=== PATIENT | male | born 1945 | race Caucasian/White ===

== ENCOUNTER 2016-03-27 14:30 | Emergency (ER) | payer MEDICARE, OTHER ==
[2016-03-27 14:37] VITALS: TEMP 97.7
[2016-03-27] MEDS ORDERED: SODIUM CHLORIDE 0.9% 500 ML IV STA (15:02)
[2016-03-27] MEDS ORDERED: SODIUM CHLORIDE 0.9% 1,000 ML IV STA (15:02)
[2016-03-27 15:30] LABS: Basophils # (A) 0.1 k/uL (0-0.2); Basophils % (A) 1 %; CH 31.3; CHCM 35.4; Eosinophils # (A) 0.2 k/uL (0-0.7); Eosinophils % (A) 2 %; HCT 45.6 % (39.0-53.0); HDW 2.71; HGB 15.6 gm/dL (13.0-17.5); Luc # (Auto) 0.15; Luc % (Auto) 1; Lymphocytes # (A) 1.2 k/uL (1.0-4.8); Lymphocytes % (A) 11 %; MCH 30.2 pg (25.0-35.0); MCHC 34.1 g/dL (31.0-37.0); MCV 88.7 fL (80.0-100.0); Mean Platelet Volume 9.4; Monocytes # (A) 0.5 k/uL (0-1.0); Monocytes % (A) 5 %; Neutrophils % (A) 81 %; RBC 5.14 m/uL (4.30-5.90); RDW 12.6 % (11.5-15.5); WBC 11.1 k/uL (3.8-10.6); WBC (Perox) 11.48
--- NOTE | 2016-03-27 15:37 | XR ---
EXAMINATION TYPE: XR chest 2V DATE OF EXAM: 03/27/2016 3:29 PM COMPARISON: None HISTORY: 71-year-old male with dysrhythmia TECHNIQUE: PA and lateral views FINDINGS: The cardiomediastinal silhouette, aorta, and pulmonary vasculature are within normal limits. Mild dif fuse interstitial prominence has a chronic appearance. Otherwise, lungs and pleural spaces are clear. Partially visualized shoulder arthroplasties. IMPRESSION: Chronic-appearing changes without acute cardiopulmonary process.
[2016-03-27 15:44] LABS: ALT 37 U/L (21-72); AST 27 U/L (17-59); Alkaline Phosphatase 66 U/L (38-126); Anion Gap 16 mmol/L; Blood Urea Nitrogen 24 mg/dL (9-20); Calcium 10.1 mg/dL (8.4-10.2); Carbon Dioxide 24 mmol/L (22-30); Chloride 100 mmol/L (98-107); Glucose 152 mg/dL (74-99); Magnesium 1.8 mg/dL (1.6-2.3); Non-African American GFR(MDRD) >60 (>60 ml/min/1.73 sqM); Potassium 4.3 mmol/L (3.5-5.1); Sodium 140 mmol/L (137-145); Total Bilirubin 0.5 mg/dL (0.2-1.3); Total Protein 7.7 g/dL (6.3-8.2)
[2016-03-27 15:47] LABS: INR 1.2 (<1.1); Partial Thromboplastin Time 27.8 sec (22.0-30.0); Prothrombin Time 11.7 sec (9.0-12.0)
[2016-03-27 15:53] LABS: Creatine Kinase 45 U/L (55-170)
--- NOTE | 2016-03-27 16:03 | CT ---
EXAMINATION TYPE: CT brain wo con DATE OF EXAM: 03/27/2016 3:45 PM COMPARISON: NONE HISTORY: 71-year-old male with weakness TECHNIQUE: Examination was done in axial plane without intravenous contrast. Coronal and sagittal reconstructio ns performed. CT DLP: 1090.4 mGycm Automated exposure control for dose reduction was used. FINDINGS: There is no evidence of acute intracranial hemorrhage, acute ischemic changes, mass, mass-effect, or extra-axial fluid collection. There is no effacement of cerebral sulci or basal subarachnoid cister ns. There is no hydrocephalus. There is no midline shift. Cline-white matter distinction is preserv ed. There is mild age-related cerebral atrophy. Paranasal sinuses and mastoid air cells are well pneumatized. Orbits and globes are intact. IMPRESSION: No acute intracranial abnormality seen. Mild age-related atrophy.
[2016-03-27 16:05] LABS: Creatine Kinase MB 0.5 ng/mL (0.0-2.4); Troponin I <0.012 ng/mL (0.000-0.034)
--- NOTE | 2016-03-27 17:25 | ED ---
Arrhythmia/Palpitations HPI - General Chief Complaint: Arrhythmia/Palpitations Stated Complaint: Arrythmia/Palpitations Time Seen by Provider: 03/27/16 14:54 Source: patient Mode of arrival: wheelchair Limitations: no limitations - History of Present Illness Initial Comments: Presented with the palpitation he feels his heart disease reactive to Januvia and metformin he has loss of appetite he has lost 11 pounds and lost many half weeks is also complaining about the dizzy and palpitation he said his heart rate was as high as 152 this morning he denies any shortness of breath he does complain about some shakiness when his heart rate gets too fast no chest pain no pleuritic chest pain no abdominal pain no frequency urgency dysuria, tender system is unremarkable otherwise - Related Data Home Medications Medication Instructions Recorded Confirmed Lisinopril-Hctz 20-12.5 mg 1 tab PO DAILY 03/27/16 03/27/16 [Zestoretic 20-12.5] Simvastatin [Zocor] 40 mg PO HS 03/27/16 03/27/16 metFORMIN HCL 1,000 mg PO BID 03/27/16 03/27/16 sitaGLIPtin [Januvia] 100 mg PO DAILY@1700 03/27/16 03/27/16 Previous Rx's Medication Instructions Recorded Metoprolol Tartrate 25 mg PO BID #60 tab 03/27/16 Allergies Allergy/AdvReac Type Severity Reaction Status Date / Time dulaglutide [From [facility]] AdvReac Nausea & Verified 03/27/16 14:57 Vomiting Review of Systems ROS Statement: Those systems with pertinent positive or pertinent negative responses have been documented in the HPI. ROS Other: All systems not noted in ROS Statement are negative. Past Medical History Past Medical History: Diabetes Mellitus, Hyperlipidemia, Hypertension History of Any Multi-Drug Resistant Organisms: None Reported Past Surgical History: Joint Replacement, Orthopedic Surgery Additional Past Surgical History / Comment(s): shoulder x2 knee Past Psychological History: No Psychological Hx Reported Smoking Status: Former smoker Past Alcohol Use History: None Reported Past Drug Use History: None Reported General Exam - General Exam Comments Initial Comments: General: The patient is awake and alert, in no distress, and does not appear acutely ill. Skin: Skin is warm and dry and no rashes or lesions are noted. Eye: Pupils are equal, round and reactive to light, extra-ocular movements are intact; there is normal conjunctiva bilaterally. Ears, nose, mouth and throat: There are moist mucous membranes and no oral lesions. Neck: The neck is supple, there is no tenderness or JVD. Cardiovascular: There is a regular rate and rhythm. No murmur, rub or gallop is appreciated. He was sinus tach round 110 at the time of exam Respiratory: To auscultation bilateral, no wheezing no rhonchi no distress respiratory wilson noticed Gastrointestinal: Soft, non-distended, non-tender abdomen without masses or organomegaly noted. There is no rebound or guarding present. Bowel sounds are unremarkable. Back: There is no tenderness to palpation in the midline. There is no obvious deformity. Musculoskeletal: Normal ROM, no tenderness, There is no pedal edema. There is no calf tenderness or swelling. No cords were appreciated. Neurological: CN II-XII intact, Cranial nerves III through XII are intact. There are no obvious motor or sensory deficits. Coordination appears grossly intact. Speech is normal. Psychiatric: Cooperative, appropriate mood & affect, normal judgment. Limitations: no limitations Course Vital Signs 03/27/16 03/27/16 03/27/16 14:33 15:30 16:05 Temperature 97.7 F Pulse Rate 124 H 96 Pulse Rate [ 96 Sales Professional ] Respiratory 18 15 Rate Blood Pressure 140/77 133/82 O2 Sat by Pulse 98 97 Oximetry 03/27/16 17:59 Temperature Pulse Rate 90 Pulse Rate [ Sales Professional ] Respiratory 15 Rate Blood Pressure 137/92 O2 Sat by Pulse 97 Oximetry Discussed with the Dr. Rutledge he agrees that patient to go home on a small dose of metoprolol 25 mg by mouth twice a day then stop the Januvia, these instructions were given to patient he is agreeable and is comfortable going home EKG Findings - EKG Comments: EKG Findings:: EKG is a sinus tachycardia ventricular rate is 7017 LA interval is 188 QRS duration is 90 QT/QTc is 322/449 review of this EKG did not reveal any ST elevation or ST depression Medical Decision Making - Lab Data Result diagrams: 03/27/16 15:10 03/27/16 15:10 Lab Results 03/27/16 03/27/16 03/27/16 Range/Units 15:10 15:10 15:10 WBC 11.1 H (3.8-10.6) k/uL RBC 5.14 (4.30-5.90) m/uL Hgb 15.6 (13.0-17.5) gm/dL Hct 45.6 (39.0-53.0) % MCV 88.7 (80.0-100.0) fL MCH 30.2 (25.0-35.0) pg MCHC 34.1 (31.0-37.0) g/dL RDW 12.6 (11.5-15.5) % Plt Count 209 (150-450) k/uL Neutrophils % 81 % Lymphocytes % 11 % Monocytes % 5 % Eosinophils % 2 % Basophils % 1 % Neutrophils # 9.0 H (1.3-7.7) k/uL Lymphocytes # 1.2 (1.0-4.8) k/uL Monocytes # 0.5 (0-1.0) k/uL Eosinophils # 0.2 (0-0.7) k/uL Basophils # 0.1 (0-0.2) k/uL PT (9.0-12.0) sec INR (<1.1) APTT (22.0-30.0) sec Sodium 140 (137-145) mmol/L Potassium 4.3 (3.5-5.1) mmol/L Chloride 100 (98-107) mmol/L Carbon Dioxide 24 (22-30) mmol/L Anion Gap 16 mmol/L BUN 24 H (9-20) mg/dL Creatinine 1.10 (0.66-1.25) mg/dL Est GFR (MDRD) Af Amer >60 (>60 ml/min/1.73 sqM) Est GFR (MDRD) Non-Af >60 (>60 ml/min/1.73 sqM) Glucose 152 H (74-99) mg/dL Calcium 10.1 (8.4-10.2) mg/dL Magnesium 1.8 (1.6-2.3) mg/dL Total Bilirubin 0.5 (0.2-1.3) mg/dL AST 27 (17-59) U/L ALT 37 (21-72) U/L Alkaline Phosphatase 66 (38-126) U/L Total Creatine Kinase 45 L (55-170) U/L CK-MB (CK-2) 0.5 (0.0-2.4) ng/mL CK-MB (CK-2) Rel Index 1.1 Troponin I <0.012 (0.000-0.034) ng/mL Total Protein 7.7 (6.3-8.2) g/dL Albumin 4.7 (3.5-5.0) g/dL TSH 2.240 (0.465-4.680) mIU/L 03/27/16 Range/Units 15:10 WBC (3.8-10.6) k/uL RBC (4.30-5.90) m/uL Hgb (13.0-17.5) gm/dL Hct (39.0-53.0) % MCV (80.0-100.0) fL MCH (25.0-35.0) pg MCHC (31.0-37.0) g/dL RDW (11.5-15.5) % Plt Count (150-450) k/uL Neutrophils % % Lymphocytes % % Monocytes % % Eosinophils % % Basophils % % Neutrophils # (1.3-7.7) k/uL Lymphocytes # (1.0-4.8) k/uL Monocytes # (0-1.0) k/uL Eosinophils # (0-0.7) k/uL Basophils # (0-0.2) k/uL PT 11.7 (9.0-12.0) sec INR 1.2 (<1.1) APTT 27.8 (22.0-30.0) sec Sodium (137-145) mmol/L Potassium (3.5-5.1) mmol/L Chloride (98-107) mmol/L Carbon Dioxide (22-30) mmol/L Anion Gap mmol/L BUN (9-20) mg/dL Creatinine (0.66-1.25) mg/dL Est GFR (MDRD) Af Amer (>60 ml/min/1.73 sqM) Est GFR (MDRD) Non-Af (>60 ml/min/1.73 sqM) Glucose (74-99) mg/dL Calcium (8.4-10.2) mg/dL Magnesium (1.6-2.3) mg/dL Total Bilirubin (0.2-1.3) mg/dL AST (17-59) U/L ALT (21-72) U/L Alkaline Phosphatase (38-126) U/L Total Creatine Kinase (55-170) U/L CK-MB (CK-2) (0.0-2.4) ng/mL CK-MB (CK-2) Rel Index Troponin I (0.000-0.034) ng/mL Total Protein (6.3-8.2) g/dL Albumin (3.5-5.0) g/dL TSH (0.465-4.680) mIU/L Critical Care Time Total Critical Care Time: 35 Critical Care Time: Patient came in was quite anxious me his heart rate was running when 24 is sinus at this point we monitored him and since he says is sinus tach he was afebrile we gave him 500 mg bolus and started on a fluids CBC troponin EKG INR TSH compressive metabolic panel was done those were reviewed and they're all within normal range considering his dizziness may be secondary to his tachycardia any new bowel etiology was ruled out with a head CT at 1700 and his heart rate is below 190 he is feeling better he is looking better but on her doctor Dr. Lamberto Rutledge considering his dizziness and heart rate is high as 152 with a we need to observe him overnight or he could benefit from Holter monitor as outpatient 4600 H of calcium channel alice or beta alice Disposition Clinical Impression: Tachycardia, Dizziness Disposition: HOME SELF-CARE Condition: Good Instructions: Palpitations (ED) Prescriptions: Metoprolol Tartrate 25 mg PO BID #60 tab Referrals: Weston Rutledge MD [Primary Care Provider] - 1-2 days
[2016-03-27] MEDS ORDERED: METOPROLOL TARTRATE 25 MG TAB PO STA (17:46)
[2016-03-27 18:55] VITALS: BP 116/72; PULSE 75; RESP 16
== END 2016-03-27 19:02 | disposition home or self-care (01) ==
LOC: EC 14:30
DX: R00.0 Tachycardia, unspecified (principal); R42 Dizziness and giddiness; Z79.899 Other long term (current) drug therapy; Z88.8 Allergy status to other drugs, medicaments and biological substances; E11.9 Type 2 diabetes mellitus without complications; E78.5 Hyperlipidemia, unspecified; I10 Essential (primary) hypertension; Z79.84 Long term (current) use of oral hypoglycemic drugs; Z87.891 Personal history of nicotine dependence
CPT/HCPCS: 36415; 70450; 71020; 80053; 82550; 82553; 83735; 84443; 84484; 85025; 85610; 85730; 93005; 99285

== ENCOUNTER → 2016-09-19 | Outpatient (CLI) | payer MEDICARE, OTHER ==
--- NOTE | 2016-09-19 15:03 | XR ---
Abdomen HISTORY: Kidney stone, hematuria Frontal view of the abdomen submitted, no comparisons Overlying bowel gas may obscure detail. Degenerative disc changes in the visualized spine. No pneumop eritoneum or bowel obstruction. Vascular calcifications are present within the pelvis. Lung bases are not included on the exam. IMPRESSION: No abnormality evident to account for patient's symptoms.
== END ==
LOC: RADXRMAIN 14:25
PROVIDERS: ATTEND Urology
DX: N20.0 Calculus of kidney (principal)
CPT/HCPCS: 74000

== ENCOUNTER → 2016-10-15 | Outpatient (CLI) | payer MEDICARE, OTHER ==
[2016-10-15 13:54] LABS: Blood Urea Nitrogen 27 mg/dL (9-20); Non-African American GFR(MDRD) >60 (>60 ml/min/1.73 sqM)
--- NOTE | 2016-10-15 15:12 | CT ---
EXAMINATION TYPE: CT urogram wo/w con DATE OF EXAM: 10/15/2016 COMPARISON: NONE HISTORY: Gross hematuria CT DLP: 2066 mGycm, Automated Exposure Control for Dose Reduction was Utilized. CONTRAST: CT scan of the abdomen and pelvis is performed with oral and without and with IV Contrast, patient in jected with 100 ml mL of Omnipaque 300. FINDINGS: Visualized portions of the lungs are clear. There is no pleural or pericardial fluid. The h eart is not Both adrenal glands are normal. There is no evidence of hydronephrosis or nephrolithiasis. Both kidneys demonstrate function and appear morphologically normal. Limited views of the pancreas are normal. There is moderate atheromatous calcification of the aorta and other iliac vessels. There is no significant retroperitoneal, iliac or inguinal adenopathy. There are 2 filling defects within the bladder. One measures 3 cm the other measures 1.8 cm. The firs t is near the trigone on the left. The other is located centrally and posteriorly. The right ureter is incompletely visualized. Left ureter is normal. There is diverticular change involving the left side of the colon. I do not see radiographic evidence of diverticulitis. Small bowel loops are normal. There is no free fluid and no free air. There is a umbilical hernia containing fat only with a mouth measuring 1.4 cm. There is degenerative disc disease and hypertrophic spondylosis within the spine. There is facet arth ropathy. No bony destructive lesion is seen. IMPRESSION: 1. NORMAL-APPEARING KIDNEYS. 2. 2 SOFT TISSUE FILLING DEFECTS WITHIN THE BLADDER. THESE ARE SUSPICIOUS FOR TRANSITIONAL CELL CARCI NOMA. DIRECT VISUALIZATION WOULD BE SUGGESTED. 3. UNCOMPLICATED DIVERTICULOSIS OF THE LEFT SIDE OF THE COLON. 4. UMBILICAL HERNIA CONTAINING FAT ONLY WITH A MOUTH MEASURING 1.4 CM. 5. DEGENERATIVE CHANGES WITHIN THE SPINE.
== END | disposition home or self-care (01) ==
LOC: RADCTMAIN 13:06
PROVIDERS: ATTEND Urology
DX: K57.30 Diverticulosis of large intestine without perforation or abscess without bleeding (principal); K42.9 Umbilical hernia without obstruction or gangrene; N32.89 Other specified disorders of bladder
CPT/HCPCS: 82565; 84520; 74178; 36415; 74400; Q9967

== ENCOUNTER 2016-11-18 03:11 | Emergency (ER) | payer MEDICARE, OTHER ==
[2016-11-18 03:16] VITALS: TEMP 97
[2016-11-18] MEDS ORDERED: MORPHINE SULFATE 4 MG/ML SYRINGE IV STA (03:47)
[2016-11-18] MEDS ORDERED: SODIUM CHLORIDE 0.9% 500 ML IV STA (03:47)
--- NOTE | 2016-11-18 03:51 | ED ---
Male Urogenital HPI - General Chief complaint: Urogenital Stated complaint: blood in urine Time Seen by Provider: 11/18/16 03:32 Source: patient Mode of arrival: wheelchair Limitations: no limitations - History of Present Illness Initial comments: This patient is a 71-year-old man who presents to be evaluated for hematuria and suprapubic pressure. The patient states that he started passing blood and clots in the urine yesterday and that the symptoms worsened tonight. 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, by Dr. Meneses. Patient had been feeling fairly well until yesterday morning. The patient denies fever or chills. No chest pain, dyspnea, palpitations, lightheadedness or syncope. He denies abdominal pain on suprapubic pressure. No change in bowel movements. MD Complaint: other (Hematuria) Onset/Timin -: days(s) Location: abdomen Radiation: none Severity: moderate Quality: other (Pressure) Consistency: constant Improves with: none Worsens with: urination Reports: blood in urine - Related Data Home Medications Medication Instructions Recorded Confirmed Lisinopril-Hctz 20-12.5 mg 1 tab PO DAILY 03/27/16 03/27/16 [Zestoretic 20-12.5] Simvastatin [Zocor] 40 mg PO HS 03/27/16 03/27/16 metFORMIN HCL 1,000 mg PO BID 03/27/16 03/27/16 sitaGLIPtin [Januvia] 100 mg PO DAILY@1700 03/27/16 03/27/16 Previous Rx's Medication Instructions Recorded Metoprolol Tartrate 25 mg PO BID #60 tab 03/27/16 Allergies Allergy/AdvReac Type Severity Reaction Status Date / Time dulaglutide [From [facility]] AdvReac Nausea & Verified 11/18/16 03:16 Vomiting Review of Systems ROS Statement: Those systems with pertinent positive or pertinent negative responses have been documented in the HPI. ROS Other: All systems not noted in ROS Statement are negative. Constitutional: Denies: fever, chills Respiratory: Denies: cough, dyspnea Cardiovascular: Denies: chest pain, palpitations, edema, syncope Gastrointestinal: Reports: as per HPI, abdominal pain. Denies: nausea, vomiting , diarrhea, constipation Genitourinary: Reports: urgency, hematuria Musculoskeletal: Denies: back pain Skin: Denies: rash Neurological: Denies: headache, weakness Hematological/Lymphatic: Denies: easy bleeding Past Medical History Past Medical History: Diabetes Mellitus, Hyperlipidemia, Hypertension History of Any Multi-Drug Resistant Organisms: None Reported Past Surgical History: Joint Replacement, Orthopedic Surgery Additional Past Surgical History / Comment(s): shoulder x2 knee. tumor removed from bladder. Past Psychological History: No Psychological Hx Reported Smoking Status: Former smoker Past Alcohol Use History: None Reported Past Drug Use History: None Reported General Exam Limitations: no limitations General appearance: alert, anxious Head exam: Present: atraumatic, normocephalic Eye exam: Present: normal appearance. Absent: scleral icterus, conjunctival injection ENT exam: Present: normal oropharynx Neck exam: Present: normal inspection Respiratory exam: Present: normal lung sounds bilaterally. Absent: respiratory distress, wheezes, rales, rhonchi, stridor Cardiovascular Exam: Present: regular rate, normal rhythm, normal heart sounds. Absent: systolic murmur, diastolic murmur, rubs, gallop GI/Abdominal exam: Present: soft. Absent: distended, tenderness, guarding, rebound, mass Extremities exam: Present: normal inspection, normal capillary refill. Absent: pedal edema, calf tenderness Back exam: Present: normal inspection. Absent: CVA tenderness (R), CVA tenderness (L) Neurological exam: Present: alert Skin exam: Present: warm, dry, intact, normal color. Absent: rash Course Vital Signs 11/18/16 03:14 Temperature 97 F L Pulse Rate 119 H Respiratory 24 Rate Blood Pressure 170/88 O2 Sat by Pulse 100 Oximetry Medical Decision Making - Lab Data Result diagrams: 11/18/16 03:40 11/18/16 03:40 Lab Results 11/18/16 11/18/16 11/18/16 Range/Units 03:40 03:40 03:40 WBC 20.7 H (3.8-10.6) k/uL RBC 4.44 (4.30-5.90) m/uL Hgb 13.4 (13.0-17.5) gm/dL Hct 41.0 (39.0-53.0) % MCV 92.2 (80.0-100.0) fL MCH 30.1 (25.0-35.0) pg MCHC 32.7 (31.0-37.0) g/dL RDW 13.9 (11.5-15.5) % Plt Count 250 (150-450) k/uL Neutrophils % 92 % Lymphocytes % 4 % Monocytes % 3 % Eosinophils % 0 % Basophils % 0 % Neutrophils # 19.1 H (1.3-7.7) k/uL Lymphocytes # 0.9 L (1.0-4.8) k/uL Monocytes # 0.5 (0-1.0) k/uL Eosinophils # 0.1 (0-0.7) k/uL Basophils # 0.1 (0-0.2) k/uL PT (9.0-12.0) sec INR (<1.2) APTT (22.0-30.0) sec Sodium 138 (137-145) mmol/L Potassium 3.9 (3.5-5.1) mmol/L Chloride 102 (98-107) mmol/L Carbon Dioxide 19 L (22-30) mmol/L Anion Gap 17 mmol/L BUN 27 H (9-20) mg/dL Creatinine 0.82 (0.66-1.25) mg/dL Est GFR (MDRD) Af Amer >60 (>60 ml/min/1.73 sqM) Est GFR (MDRD) Non-Af >60 (>60 ml/min/1.73 sqM) Glucose 242 H (74-99) mg/dL Calcium 10.0 (8.4-10.2) mg/dL Total Bilirubin 0.6 (0.2-1.3) mg/dL AST 22 (17-59) U/L ALT 19 L (21-72) U/L Alkaline Phosphatase 53 (38-126) U/L Total Protein 7.2 (6.3-8.2) g/dL Albumin 4.5 (3.5-5.0) g/dL Urine Color Red Urine Appearance Cloudy (Clear) Urine pH (5.0-8.0) Ur Specific [place] (1.001-1.035) Urine Protein (Negative) Urine Glucose (UA) (Negative) Urine Ketones (Negative) Urine Blood (Negative) Urine Nitrite (Negative) Urine Bilirubin (Negative) Urine Urobilinogen (<2.0) mg/dL Ur Leukocyte Esterase (Negative) 11/18/16 Range/Units 03:40 WBC (3.8-10.6) k/uL RBC (4.30-5.90) m/uL Hgb (13.0-17.5) gm/dL Hct (39.0-53.0) % MCV (80.0-100.0) fL MCH (25.0-35.0) pg MCHC (31.0-37.0) g/dL RDW (11.5-15.5) % Plt Count (150-450) k/uL Neutrophils % % Lymphocytes % % Monocytes % % Eosinophils % % Basophils % % Neutrophils # (1.3-7.7) k/uL Lymphocytes # (1.0-4.8) k/uL Monocytes # (0-1.0) k/uL Eosinophils # (0-0.7) k/uL Basophils # (0-0.2) k/uL PT 11.9 (9.0-12.0) sec INR 1.2 H (<1.2) APTT 23.9 (22.0-30.0) sec Sodium (137-145) mmol/L Potassium (3.5-5.1) mmol/L Chloride (98-107) mmol/L Carbon Dioxide (22-30) mmol/L Anion Gap mmol/L BUN (9-20) mg/dL Creatinine (0.66-1.25) mg/dL Est GFR (MDRD) Af Amer (>60 ml/min/1.73 sqM) Est GFR (MDRD) Non-Af (>60 ml/min/1.73 sqM) Glucose (74-99) mg/dL Calcium (8.4-10.2) mg/dL Total Bilirubin (0.2-1.3) mg/dL AST (17-59) U/L ALT (21-72) U/L Alkaline Phosphatase (38-126) U/L Total Protein (6.3-8.2) g/dL Albumin (3.5-5.0) g/dL Urine Color Urine Appearance (Clear) Urine pH (5.0-8.0) Ur Specific [place] (1.001-1.035) Urine Protein (Negative) Urine Glucose (UA) (Negative) Urine Ketones (Negative) Urine Blood (Negative) Urine Nitrite (Negative) Urine Bilirubin (Negative) Urine Urobilinogen (<2.0) mg/dL Ur Leukocyte Esterase (Negative) Disposition Clinical Impression: Hematuria Disposition: HOME SELF-CARE Condition: Good Instructions: Hematuria (ED) Referrals: Phyllis Vaz MD [Primary Care Provider] - 1-2 days Eduardo Meneses MD [STAFF PHYSICIAN] - 1-2 days
[2016-11-18 04:13] LABS: Basophils # (A) 0.1 k/uL (0-0.2); Basophils % (A) 0 %; CHCM 34.9; Eosinophils # (A) 0.1 k/uL (0-0.7); Eosinophils % (A) 0 %; HDW 2.67; HGB 13.4 gm/dL (13.0-17.5); Luc % (Auto) 1; Lymphocytes # (A) 0.9 k/uL (1.0-4.8); Lymphocytes % (A) 4 %; MCH 30.1 pg (25.0-35.0); MCHC 32.7 g/dL (31.0-37.0); MCV 92.2 fL (80.0-100.0); Mean Platelet Volume 10.3; Monocytes # (A) 0.5 k/uL (0-1.0); Monocytes % (A) 3 %; Neutrophils # (A) 19.1 k/uL (1.3-7.7); Neutrophils % (A) 92 %; RBC 4.44 m/uL (4.30-5.90); RDW 13.9 % (11.5-15.5); WBC 20.7 k/uL (3.8-10.6); WBC (Perox) 19.35
[2016-11-18 04:15] LABS: Appearance,Urine Cloudy (Clear)
[2016-11-18 04:18] LABS: UA Billing (MACRO vs. MICRO) MICRO
[2016-11-18 04:27] LABS: INR 1.2 (<1.2); Prothrombin Time 11.9 sec (9.0-12.0)
[2016-11-18 04:28] LABS: Partial Thromboplastin Time 23.9 sec (22.0-30.0)
[2016-11-18 04:31] LABS: ALT 19 U/L (21-72); AST 22 U/L (17-59); Alkaline Phosphatase 53 U/L (38-126); Anion Gap 17 mmol/L; Blood Urea Nitrogen 27 mg/dL (9-20); Carbon Dioxide 19 mmol/L (22-30); Chloride 102 mmol/L (98-107); Glucose 242 mg/dL (74-99); Non-African American GFR(MDRD) >60 (>60 ml/min/1.73 sqM); Potassium 3.9 mmol/L (3.5-5.1); Sodium 138 mmol/L (137-145); Total Bilirubin 0.6 mg/dL (0.2-1.3); Total Protein 7.2 g/dL (6.3-8.2)
[2016-11-18 05:19] VITALS: BP 126/70; PULSE 90; RESP 16
[2016-11-18] MEDS ORDERED: OXYBUTYNIN CHLORIDE 5 MG TAB PO STA (05:20)
[2016-11-18] MEDS ORDERED: DIAZEPAM 5 MG/ML 2 ML SYRINGE IVP STA (05:21)
== END 2016-11-18 05:49 | disposition home or self-care (01) ==
LOC: EC 03:11
DX: R31.9 Hematuria, unspecified (principal); Z98.890 Other specified postprocedural states; Z87.891 Personal history of nicotine dependence; Z79.84 Long term (current) use of oral hypoglycemic drugs; Z79.899 Other long term (current) drug therapy; Z88.8 Allergy status to other drugs, medicaments and biological substances
CPT/HCPCS: 51798; 36415; 80053; 85025; 85610; 85730; 81001; 99284; 96374; 96375; 96361; J2270; J3360

== ENCOUNTER → 2017-11-05 | Outpatient (CLI) | payer MEDICARE, OTHER ==
[2017-11-05 13:37] LABS: Blood Urea Nitrogen 29 mg/dL (9-20)
--- NOTE | 2017-11-05 14:35 | CT ---
EXAMINATION TYPE: CT brain wo/w con DATE OF EXAM: 11/05/2017 COMPARISON: 03/27/2016 HISTORY: [place] CT DLP: 2383mGycm CONTRAST: CT scan of the head is performed without and with IV Contrast, patient injected with 100 mL of Isovue 300. Unenhanced followed by contrast enhanced CT of the brain is submitted for evaluation. The ventricles are midline. There is no evidence for intracranial hemorrhage or extra-axial collection. No mass e ffects are identified. Visualized bony calvarium is intact. Contrast is administered and no enhanci ng lesions are detected. No pathologic enhancement is identified. If symptoms persist consider MRI. IMPRESSION: No acute intracranial process or enhancing lesion identified.
== END | disposition home or self-care (01) ==
LOC: RADCTMAIN 12:58
PROVIDERS: ATTEND Internal Medicine
DX: R51 Headache (principal)
CPT/HCPCS: 82565; 84520; 70470; 36415; Q9967

== ENCOUNTER → 2017-12-08 | Outpatient (CLI) | payer MEDICARE, OTHER ==
--- NOTE | 2017-12-08 13:14 | MR ---
EXAMINATION TYPE: MR cervical spine wo/w con DATE OF EXAM: 12/08/2017 COMPARISON: HISTORY: Cervicalgia TECHNIQUE: Multiplanar, multisequence images of the cervical spine were acquired utilizing 7 mL intravenous Gada vist gadolinium contrast. Diffusion weighted imaging was performed. C2-C3: Minimal central posterior disc bulge causes only slight anterior mass effect on the thecal sac . No significant central stenosis or foraminal encroachment. C3-C4: Posterior extension of broad-based disc bulge causes mild anterior mass effect on the thecal s ac, lateral extension of endplate disc complex results in some foraminal encroachment bilaterally. Fa cet arthropathy change noted. C4-C5: Posterior extension of endplate disc complex may contact the anterior cervical cord, lateral e xtension endplate disc complex causes bilateral foraminal encroachment. There is mild to moderate jeana tral canal stenosis. C5-C6: Posterior extension of endplate disc complex causes minimal anterior mass effect on the thecal sac. Circumferential extension of endplate disc complex results in some minimal foraminal encroachme nt. C6-C7: Posterior extension of endplate disc complex causes mild anterior mass effect on the thecal sa c. No significant central stenosis. Lateral extension of endplate disc complex causes bilateral hai inal encroachment right greater than left. C7-T1: Posterior extension endplate disc complex causes mild anterior mass effect on the thecal sac. No significant central stenosis or foraminal encroachment. Cervical segments are intact. Minimal anterolisthesis grade 1 C3-4. Cervical spinal cord is of normal signal. Craniovertebral junction relationships are within normal limits. Loss of disc height and si gnal present at the intervertebral levels C3-4, C4-5, C5-6 and C6-7, C7-T1 greater than C2-3 compatib le with disc desiccation and degenerative disc disease. No abnormal enhancement following contrast ad ministration. IMPRESSION: Multilevel degenerative disc disease, spinal stenosis, foraminal encroachment as described.
== END ==
LOC: RADMRIMAIN 11:39
PROVIDERS: ATTEND Internal Medicine
DX: M48.02 Spinal stenosis, cervical region (principal); M50.30 Other cervical disc degeneration, unspecified cervical region
CPT/HCPCS: 72156; A9581

== ENCOUNTER → 2017-12-22 | Outpatient (CLI) | payer MEDICARE, OTHER | END | disposition home or self-care (01) | LOC: LABWHC1 11:31 | PROVIDERS: ATTEND Urology | DX: C67.9 Malignant neoplasm of bladder, unspecified (principal); R97.20 Elevated prostate specific antigen [PSA] | CPT/HCPCS: 36415; 84153; 88108 ==

== ENCOUNTER → 2018-10-11 | Outpatient (CLI) | payer MEDICARE, OTHER ==
--- NOTE | 2018-10-12 07:56 | NM ---
EXAMINATION TYPE: NM hepatobiliary w EF DATE OF EXAM: 10/12/2018 COMPARISON: NONE HISTORY: Right upper quadrant pain TECHNIQUE: After the intravenous administration of 4.6 mCi Tc 99m Mebrofenin hepatobiliary scintigrap hy is performed. Immediate images post injection. FINDINGS: There is satisfactory initial accumulation of tracer by the liver. The gallbladder is visualized wit hin 6 minutes. The small bowel activity is noted within 18 minutes. At one hour 8 ounces of oral en sure plus is given to mimic CCK and gallbladder ejection fraction is calculated at 94 %, above the up per limit of normal range. Therefore there is no scintigraphic evidence of cystic or common bile jadiel t obstruction to suggest acute cholecystitis. IMPRESSION: Findings may be indicative of hyper dynamic gallbladder
== END | disposition home or self-care (01) ==
LOC: RADNMMAIN 12:45
PROVIDERS: ATTEND Internal Medicine
DX: Z53.9 Procedure and treatment not carried out, unspecified reason (principal)
CPT/HCPCS: 78226

== ENCOUNTER 2018-11-04 11:21 | Day surgery (SDC) | payer MEDICARE, OTHER ==
[2018-10-29 15:52] VITALS: BMI 24.2
[~2018-11-04 11:21] MED LIST: DEXAMETHASONE SOD PHOSPHATE 10 MG/ML 1 ML VIAL IV ONE; LACTATED RINGERS 1,000 ML IV SCH; ONDANSETRON 4 MG/2 ML VIAL IVP ONE
[2018-11-04 11:47] LABS: Glucose,Whole Blood 113 mg/dL (75-99)
[2018-11-04] MEDS ORDERED: HEPARIN SODIUM,PORCINE 5,000 UNIT/ML 1 ML VIAL SQ ONE (11:49)
[2018-11-04] MEDS ORDERED: ROCURONIUM BROMIDE 10 MG/ML 10 ML VIAL IV ONE (12:15)
[2018-11-04] MEDS ORDERED: fentaNYL (PF) 50 MCG/ML 2 ML AMP ONE (12:15)
[2018-11-04] MEDS ORDERED: PROPOFOL 10 MG/ML 20 ML VIAL IV ONE (12:15)
[2018-11-04] MEDS ORDERED: GLYCOPYRROLATE 0.2 MG/ML 2 ML VIAL ONE (12:15)
[2018-11-04] MEDS ORDERED: LIDOCAINE 1% INJ 10MG/ML (20 ML MDV) ONE (12:15)
[2018-11-04] MEDS ORDERED: ePHEDrine SULFATE/0.9% NACL/PF 50 MG/5 ML SYRINGE IV ONE (12:15)
[2018-11-04] MEDS ORDERED: MIDAZOLAM 2 MG/2 ML VIAL ONE (12:15)
[2018-11-04] MEDS ORDERED: NEOSTIGMINE 1 MG/ML 10 ML VIAL ONE (12:15)
[2018-11-04] MEDS ORDERED: PHENYLEPHRINE-0.9% NACL SYG 1 MG/10 ML SYRINGE ONE (12:15)
[2018-11-04] MEDS ORDERED: LIDOCAINE 1%-EPI 1:100,000 30 ML VIAL SQ ONE ×2 (12:49)
[2018-11-04] MEDS ORDERED: LACTATED RINGERS 1,000 ML IV ONE (12:57)
--- NOTE | 2018-11-04 13:22 | P.OP ---
Date of Procedure: 11/04/18 Preoperative Diagnosis: Gallbladder sludge, biliary dyskinesia Postoperative Diagnosis: Gallbladder sludge, biliary dyskinesia Procedure(s) Performed: Laparoscopic cholecystectomy Anesthesia: MEHRAN Surgeon: Shahida Deluca Pathology: other (Gallbladder) Condition: stable Disposition: same day Indications for Procedure: 73-year-old male presents for an elective laparoscopic cholecystectomy. He initially was seen in the surgery clinic secondary to abdominal and back pain. On workup he was noted to have gallbladder sludge and a hyperkinetic gallbladder. Plan was for cholecystectomy. Risks, benefits and alternatives were provided to the patient. The patient opted for surgical intervention and did provide consent prior to attending the operating suite. Operative Findings: Gallbladder with peritoneal adhesions Description of Procedure: The patient was brought into the operating suite and placed in supine position on the operating table. Sedation was provided by anesthesia and the patient underwent endotracheal intubation. The patient was then prepped and draped in regular sterile fashion. An infraumbilical incision was made dissection was carried to the fascia the fascia was incised. The abdomen was entered with an 11 mm trocar. Pneumoperitoneum was achieved. The patient was then placed in appropriate position. 3 additional 5 mm ports were placed. One was placed in the subxiphoid region and 2 were placed in the right upper quadrant. The gallbladder was then grasped and retracted. Peritoneal adhesions were peeled away from the gallbladder. Dissection was then carried to skeletonize both the cystic artery and the cystic duct. The critical view was obtained. 2 clips were placed proximally on the cystic duct one was placed distally and the cystic duct was ligated. 2 clips were placed proximally and the cystic artery, one was placed distally and the cystic artery and the cystic artery was ligated. Electrocautery was used to dissect the gallbladder from the gallbladder fossa. The gallbladder was then placed in an Endo Catch bag and removed from the abdomen. Irrigation was then used in the right upper quadrant and hemostasis was noted to be maintained. All ports were then removed from the abdomen under direct visualization. Pneumoperitoneum was evacuated. The infraumbilical fascia was closed with a 0 Vicryl suture. All skin incisions were then closed with 4-0 Vicryl subcuticular suture. Skin glue was applied. The patient was awakened in the operating suite and taken to postanesthesia care unit in stable condition.
[2018-11-04 13:33] VITALS: TEMP 97
[2018-11-04] MEDS: HYDROmorphone 0.5 MG/0.5 ML SYRINGE IVP PRN ×2 (13:55→14:20)
[2018-11-04] MEDS ORDERED: ONDANSETRON 4 MG/2 ML VIAL IVP ONE (14:30)
[2018-11-04 14:44] VITALS: RESP 16
[2018-11-04] MEDS ORDERED: HYDROcodone/APAP 5-325MG 1 EACH TAB PO ONE (15:00)
[2018-11-04 15:04] VITALS: PULSE 98
[2018-11-04 15:21] VITALS: BP 99/64
== END 2018-11-04 15:50 | disposition home or self-care (01) ==
LOC: OR 11:21
PROVIDERS: ATTEND Surgery
DX: K81.1 Chronic cholecystitis (principal); I10 Essential (primary) hypertension; E78.5 Hyperlipidemia, unspecified; R63.4 Abnormal weight loss; Z68.25 Body mass index [BMI] 25.0-25.9, adult; Z85.51 Personal history of malignant neoplasm of bladder; Z83.3 Family history of diabetes mellitus; N40.0 Benign prostatic hyperplasia without lower urinary tract symptoms; Z79.84 Long term (current) use of oral hypoglycemic drugs; Z79.899 Other long term (current) drug therapy; Z88.8 Allergy status to other drugs, medicaments and biological substances; Z91.030 Bee allergy status
CPT/HCPCS: 88304; 47562; J2250; J1644; J1100; J2710; J0690; J2405; J2001; J3010; J2370; J2704; J1170